=== PATIENT | female | born 1995 | race Caucasian/White ===

== ENCOUNTER 2023-01-30 08:15 | Day surgery (SDC) | payer OTHER ==
[~2023-01-30] VITALS: Ht 162.6 cm; Wt 54.5 kg
[~2023-01-30 08:15] MED LIST: OMEP20CA12 PO; SODIUM CHLORIDE 0.9% 1,000 ML IV ONE; SODIUM CHLORIDE 0.9% 1,000 ML ONE; TRET20CR33 TP
[2023-01-30 08:34] LABS: COVID AG,FIA SOURCE NASAL SWAB
[2023-01-30] MEDS ORDERED: FentaNYL CITRATE PF 100 MCG/2 ML VIAL IVP ONE (12:00)
[2023-01-30] MEDS ORDERED: KETAMINE HCL 50 MG/ML 10 ML VIAL IVP ONE (12:00)
[2023-01-30] MEDS ORDERED: MIDAZOLAM HCL 2 MG/2 ML VIAL IVP ONE (12:00)
[2023-01-30] MEDS ORDERED: OXYGEN THERAPY IH SCH (20:00)
== END 2023-01-30 11:50 | disposition home or self-care (01) ==
LOC: SURGERY 08:15
PROVIDERS: ATTEND Specialist
DX: R13.10 Dysphagia, unspecified (principal); K22.70 Barrett's esophagus without dysplasia; Z20.822 Contact with and (suspected) exposure to COVID-19; Z79.899 Other long term (current) drug therapy
CPT/HCPCS: 43235; 84703; 87426; J3010; J3490; J2250; J7030; C9803